=== PATIENT | male | born 1970 | race Caucasian/White ===

== ENCOUNTER 2017-03-21 14:51 | Outpatient (RCR) | payer OTHER ==
[2017-03-21 08:08] LABS: PLATELET COUNT, AUTOMATED 224 K/uL (150-450)
[2017-03-22] MEDS ORDERED: GADOBENATE 529MG/1ML 15ML VIAL IVP ONE (11:26)
--- NOTE | 2017-03-22 14:42 | RADIOLOGY IMAGING REPORT ---
FACILITY: [facility] PATIENT NAME: Jeremy Lamb : 1970 MR: [id number] V: [id number] EXAM DATE: ORDERING PHYSICIAN: USHA CONNOLLY TECHNOLOGIST: Location: [facility] - [place], [place] Patient: Jeremy Lamb : 1970 Visit/Account:[id number] Date of Sevice: 03/22/2017 BRAIN MR W W/O CONTRAST Generalized weakness, dizziness, weight loss ADDITIONAL PERTINENT HISTORY: None. COMPARISON STUDIES: None. TECHNIQUE: Multi-planar, multi-sequence brain MRI was performed with and without IV contrast adminis tration. Contrast: 15 mL MultiHance FINDINGS: Ventricles / sulci / fissures: Negative. Masses / hemorrhage / midline shift: Negative. White matter: Negative. Hale-white differentiation: Normal. Extra-axial fluid collections: Negative. Intracranial vasculature and dural sinuses: Negative. Skull base / calvarium: Negative. Visualized mastoid air cells / paranasal sinuses: Well aerated. Orbits: Negative. Upper neck: Incidentally noted is mild cerebellar atrophy IMPRESSION: Incidentally noted is mild cerebellar atrophy Report Dictated By: Kat Rowe MD at 03/22/2017 2:25 PM Report E-Signed By: Kat Rowe MD at 03/22/2017 2:38 PM WSN:KIRK
== END 2017-03-22 18:00 | disposition home or self-care (01) ==
LOC: MRI 14:51
PROVIDERS: ATTEND Nurse Practitioner Family
DX: M79.1 Myalgia (principal); R42 Dizziness and giddiness; R53.1 Weakness; R63.4 Abnormal weight loss
CPT/HCPCS: 36415; 70553; 84443; 85025; 85651; 86038; 86430; A9577; 82040; 82247; 82310; 82374; 82435; 82465; 82565; 82947; 83718; 84075; 84132; 84155; 84295; 84450; 84460; 84478; 84520

== ENCOUNTER 2017-03-22 13:22 | Outpatient (RCR) | payer OTHER ==
[~2017-03-22] VITALS: Ht 182.9 cm; Wt 84.4 kg
--- NOTE | 2017-03-22 17:29 | Medical Nutrition Therapy ---
Nutrition Anthropometrics Height (Inches): 72 Weight (Pounds): 186 Hx Weight Loss: Yes (64# over 18 mo.) Alexei Nutrition Score: Alexei Nutrition Risk Score: Dietary Referral Nutrition Risk Factors: Nutrition Risk Comment: Physical Findings Physical Appearance: Overweight BMI 25-29 (25.2) Skin Appearance Skin Appearance: Edema Edema Location Modifier: Edema Location: Type of Edema: Degree of Edema: Gastrointestinal Symptoms GI Symtoms: Tube Present: Bowel Sounds: Recent Bowel Pattern: Stool Characteristics: Nutrition/Food History Skipped Meals: Yes (Pt skips breakfast and lunch) Alcohol Use: Occassional (rare) Exercise: Yes (walking (aims for daily but has not been last few months)) Breakfast: skips, black coffee w/ half&half Lunch: skips Dinner: 4oz meat,corn, mixed veggies or 2cups pasta or burger and unsweet tea/ soda Snacks: cookies, 2%chocolate milk before bed Nutritional Education Nutrition Education Topic: Diabetic Nutrition Learning Readiness: Interested Teaching Methods: Discussion, Handout, Demonstration Response to Teaching: Return demonstration, Verbalize understanding, Reinforcement needed Teaching Recipient: Patient Nutrition Counseling: Pt was just diagnosed with type 1 diabetes. Pt had a 64# wt loss over the last 18 mo. Pt has been experiencing vision changes and lower leg fatigue/weakness. Pt was shocked with new dx but is optimistic that insulin and proper diet will help him feel better. We discussed carbohydrate counting in depth, aiming for 45g to 60g per meal. Pt tends to skip meals so recommended adding in a small snack or meal to keep his blood sugar stable throughout the day. We discussed proper portion sizes of carbohydrates and adding protein and vegetables to meals. Demonstrated how to use a glucometer. Pt was receptive and able to test his blood sugar, which was 364. We also discussed signs of hypo/hyperglycemia and what to do in each situation. Pt verbalized understanding. Pt was confused about insulin use and timing. MARISA GrantE/RN, was able to help and explain more in depth. Pt also given multiple handouts about carb counting, hypo/hyperglycemia symtems, and type 1 diabetes in general. Pt stated he was worried about getting insulin due to insurance complications. Pt agreed to meet again next week to address questions and concerns. We will set behavioral goals and support plan at that time. Nutrition Monitoring & Eval Nutritional Comment: Provided 2 hrs diabetes education focusing on nutrition, glucometer teaching, insulin use. Copies To Copies to: USHA CONNOLLY BETH Mar 22, 2017 16:29
--- NOTE | 2017-03-27 15:55 | Medical Nutrition Therapy ---
Nutritional Education Nutrition Education Topic: Diabetic Nutrition Learning Readiness: Interested Teaching Methods: Discussion, Handout, Demonstration Response to Teaching: Verbalize understanding Teaching Recipient: Patient Nutrition Counseling: Reviewed action of insulin, site selection, insulin effect on BG, hypo/hyperglycemial, sick day management. Reviewed current intake. Pt is counting carbs and trying to get 60gm carbs/meal. Pt is followng 1:10 CHO ratio. Pt states 60 gm too much to eat at his breakfast and lunch meals. Recommend pt talk with PCP and try 45gm CHO brft and lunch and 45-60gm supper. Pt is concerned with increased CHO at brft and lunch he may gain wt. Discussed cont 1:10 carb ratio for snacks. Stressed importance of having HS snack with carb and protein if BG < 140. Nutrition Monitoring & Eval RD Patient Assessment Time: 60 minutes Nutritional Comment: Team taught 60 diabetes education by Nicki Marte RD, CDE and Juanita Grijalva RN, CDE focusing on insulin, hypo/hyperglycemia, exercise, sick day, nutrition . Copies To Copies to: USHA CONNOLLY BETH Mar 27, 2017 15:55
== END 2017-04-26 ==
LOC: DIET 13:22
PROVIDERS: ATTEND Nurse Practitioner Family
DX: E10.9 Type 1 diabetes mellitus without complications (principal); M62.81 Muscle weakness (generalized); R53.83 Other fatigue; Z68.25 Body mass index [BMI] 25.0-25.9, adult
CPT/HCPCS: G0108 ×6

== ENCOUNTER 2017-05-22 12:00 | Outpatient (RCR) | payer OTHER ==
--- NOTE | 2017-05-22 16:49 | Medical Nutrition Therapy ---
Nutrition Anthropometrics Height (Inches): 72 Weight (Pounds): 186 Hx Weight Loss: Yes (64# over 18 mo.) Alexei Nutrition Score: Alexei Nutrition Risk Score: Dietary Referral Nutrition Risk Factors: Nutrition Risk Comment: Physical Findings Physical Appearance: Overweight BMI 25-29 Skin Appearance Skin Appearance: Edema Edema Location Modifier: Edema Location: Type of Edema: Degree of Edema: Gastrointestinal Symptoms GI Symtoms: Tube Present: Bowel Sounds: Recent Bowel Pattern: Stool Characteristics: Nutritional Education Nutrition Education Topic: Other Learning Readiness: Eager, Interested Teaching Methods: Discussion, Audiovisual Response to Teaching: Verbalize understanding Teaching Recipient: Patient Nutrition Monitoring & Eval RD Patient Assessment Time: [address] Assessment Type: RD Education Nutritional Comment: Team taught 60 diabetes education by Nicki Marte RD, CDE and Juanita Grijalva RN, CDE focusing on insulin, hypo/hyperglycemia, exercise, sick day, nutrition. 05/22/17 Pt recently diagnosed with T1DM after overt symptoms and blood glucose levels in the 400's. Pt instructed on Living with Diabetes topics including foot care, custodial complications, exercise, hypoglycemia, sick day care, etc. Pt appears interested in diabetes topics and able to answer questions regarding topics covered. I personally spent a total of 60 minutes educating/counseling patient regarding diabetes self-management in a group setting. See education section and my note above for details. LIA KEY May 22, 2017 16:49
--- NOTE | 2017-05-24 11:18 | Medical Nutrition Therapy ---
Nutritional Education Nutrition Education Topic: Diabetic Nutrition Learning Readiness: Interested Teaching Methods: Discussion, Handout, Demonstration Response to Teaching: Verbalize understanding Teaching Recipient: Patient Nutrition Counseling: Late entry for 05/22: Provided group diabetes education on nutrition. Reviewed: process of digestion; function of CHO, protein and fat; glycemic index; reading labels, portion sizes; heart healthy intake; eating out, alcohol. Nutrition Monitoring & Eval RD Patient Assessment Time: [address] Assessment Type: RD Education Nutritional Comment: Late entry for 05/22: Provided 60 diabetes education in a group setting focusing on nutrition. ( additional 90 minutes provided by Elías Guy and Ant Grijalva Copies To Copies to: USHA CONNOLLY BETH May 24, 2017 11:18
--- NOTE | 2017-05-24 11:26 | Medical Nutrition Therapy ---
Nutrition Anthropometrics Height (Inches): 72 Weight (Pounds): 186 Hx Weight Loss: Yes (64# over 18 mo.) Alexei Nutrition Score: Alexei Nutrition Risk Score: Dietary Referral Nutrition Risk Factors: Nutrition Risk Comment: Nutritional Education Nutrition Counselin05/22/17 Pt recently diagnosed with T1DM after overt symptoms and blood glucose levels in the 400's. Pt instructed on Living with Diabetes topics including foot care, mcc complications, exercise, hypoglycemia, sick day care, etc. Pt appears interested in diabetes topics and able to answer questions regarding topics covered. . Nutrition Monitoring & Eval RD Patient Assessment Time: [address] Assessment Type: RD Education Nutritional Comment: Education note from Elías Gaxiola - forwarded to PCP 60 minutes of diabetic education was provided by Elías Gamble Copies To Copies to: USHA CONNOLLY BETH May 24, 2017 11:26
--- NOTE | 2017-05-31 16:41 | Medical Nutrition Therapy ---
Nutritional Education Nutrition Education Topic: Diabetic Nutrition Learning Readiness: Interested Teaching Methods: Discussion, Handout, Demonstration Response to Teaching: Verbalize understanding Teaching Recipient: Patient Nutrition Counseling: late entry for 05/30/17, 17:00 Pt recieved insulin pump training for Medtronic 670 pump and insertion of insulin pump. Pump setting are as following: Total Daily dose: 20 Basel rate- 0.41 Insulin Sensitivity Factor 85 Carb ratio 22.5 Nutrition Monitoring & Eval RD Patient Assessment Time: [address] Assessment Type: RD Education Nutritional Comment: 90 minutes of diabetic education in a group setting was provided by Nicki Marte Copies To Copies to: USHA CONNOLLY BETH May 31, 2017 16:35
--- NOTE | 2017-06-07 16:19 | Medical Nutrition Therapy ---
Nutritional Education Nutrition Education Topic: Diabetic Nutrition Learning Readiness: Interested Teaching Methods: Discussion, Handout, Demonstration Response to Teaching: Verbalize understanding Teaching Recipient: Patient Nutrition Counseling: late entry for 06/06 Provided education and insertion of CGM monitor for Medtronic 670. 06/07 provided phone call f/u to pt. Pt is doing well with CGM and has been able to identify issue of low then high during night. Recommend try eating a protein food prior to bedtime to see if that helps. Pt will be set up with the [employer] training system. Nutrition Monitoring & Eval RD Patient Assessment Time: [address] Assessment Type: RD Education Nutritional Comment: 90 minutes of diabetic insulin pump education in a group setting was provided by Nicki Marte Copies To Copies to: USHA CONNOLLY BETH Jun 07, 2017 16:19
== END 2017-06-26 ==
LOC: DIET 12:00
PROVIDERS: ATTEND Nurse Practitioner Family
DX: E10.9 Type 1 diabetes mellitus without complications (principal)
CPT/HCPCS: G0109 ×5; G0108

== ENCOUNTER → 2018-02-21 | Outpatient (CLI) | payer OTHER ==
[2018-02-21 08:05] LABS: PLATELET COUNT, AUTOMATED 212 K/uL (150-450)
[2018-02-21 08:31] LABS: LDL CHOLESTEROL 155 mg/dl
== END ==
LOC: LAB 07:52
PROVIDERS: ATTEND Nurse Practitioner Family
DX: E10.9 Type 1 diabetes mellitus without complications (principal); E78.5 Hyperlipidemia, unspecified
CPT/HCPCS: 36415; 82040; 82247; 82310; 82374; 82435; 82465; 82565; 82947; 83036; 83718; 84075; 84132; 84155; 84295; 84450; 84460; 84478; 84520; 85025